=== PATIENT | male | born 1970 | race Caucasian/White ===

== ENCOUNTER 2019-10-05 07:57 | Outpatient (CLI) | payer OTHER, SELFPAY ==
--- NOTE | 2019-10-05 08:03 | MR_ITS ---
WS: [id number] MRI RIGHT KNEE NONCONTRAST TECHNIQUE: Axial PD, coronal PD fat sat, coronal PD, sagittal PD, and sagittal PD fat-sat images obta ined. CLINICAL INFORMATION: RIGHT KNEE PAIN COMPARISON: None. FINDINGS: Distal quadriceps and patella tendons are intact. Normal patella. Anterior and posterior cruciate lig aments are intact. Normal meniscus. No acute appearing meniscal tears. No evidence of high-grade inju ry. Grade 2 chondromalacia patella. No subchondral edema. Normal medial and lateral patellar retinaculum. Medial and lateral collateral ligaments are intact. Normal popliteal fossa. Mild joint space narrowi ng involving the medial and lateral joint compartments. Mild chondromalacia. No subchondral edema. No rmal tibial plateau. MR/MR knee RT wo con* [id number] IMPRESSION: 1. Anterior and posterior cruciate ligaments are intact. 2. Normal medial and lateral meniscus. No acute appearing meniscal tears. 3. Grade 2 chondromalacia patella. No subchondral edema. 4. Normal medial and lateral collateral ligaments. 5. Mild medial and lateral joint space narrowing with mild chondromalacia.
== END 2019-10-05 07:58 | disposition home or self-care (01) ==
LOC: RADSHAW 08:00
PROVIDERS: Family Provider Nurse Practitioner; PCP Nurse Practitioner; Visit Provider Nurse Practitioner
DX: M22.41 Chondromalacia patellae, right knee (principal)
CPT/HCPCS: 73721

== ENCOUNTER → 2021-05-23 15:33 | Outpatient (BNVA) | payer OTHER, SELFPAY | PROVIDERS: Family Provider Nurse Practitioner; PCP Nurse Practitioner; Visit Provider Nurse Practitioner Family | DX: Z20.822 Contact with and (suspected) exposure to COVID-19 (principal) | CPT/HCPCS: 87635 ==

== ENCOUNTER → 2022-01-05 10:41 | Outpatient (BNVA) | payer OTHER, SELFPAY | PROVIDERS: Family Provider Nurse Practitioner; PCP Nurse Practitioner; Referring Provider Nurse Practitioner; Visit Provider Surgery | DX: K61.0 Anal abscess (principal) | CPT/HCPCS: 99204 ==

== ENCOUNTER → 2025-07-16 09:53 | Outpatient (BNVA) | payer OTHER, SELFPAY | PROVIDERS: Family Provider Nurse Practitioner; PCP Nurse Practitioner; Visit Provider Surgery | DX: Z12.11 Encounter for screening for malignant neoplasm of colon (principal); R03.0 Elevated blood-pressure reading, without diagnosis of hypertension | CPT/HCPCS: 99204 ==

== ENCOUNTER 2025-07-26 06:49 | Day surgery (SDC) | payer OTHER, SELFPAY ==
[2025-07-26 07:05] VITALS: BP 144/84; PULSE 56; RESP 16; TEMP 36.3; O2SAT 98; BMI 25.0
--- NOTE | 2025-07-26 07:23 | ANES.PREANE2 ---
Pre-Anesthetic Assessment Height/Weight: Height 1.73 m Weight 74.843 kg Temp Pulse Resp BP Pulse Ox O2 Del Method 97.3 F L 56 L 16 144/84 98 Room Air 07/26/25 07:05 07/26/25 07:05 07/26/25 07:05 07/26/25 07:05 07/26/25 07:05 07/26/25 07:05 Preop Diagnosis: screen Operation Date: 07/26/25 08:20 Proposed Procedures p Colonoscopy 45924 [id number] Z12.11(Not Applicable) - Ze Leyva MD Familial anesthetic complications: none Was Beta Zonia taken within 24 hours: N/A Was Clonidine taken within 24 hours: N/A Last intake: Intake Last Liquid Date 07/25/25 Last Liquid Time 02:00 Last Solid Date 07/24/25 Last Solid Time 18:00 Social Alcohol (beer daily) and Tobacco (chew) Exam alert, oriented x 3, clear to auscultation bilaterally and regular rate & rhythm Airway Cervical ROM: within normal limits Mallampati: Class II Dentition: full Pulmonary None reported CV/HEM Hypertension (on losartan) None reported Hepatic None reported GI None reported Metabolic None reported Musc/skel Restless leg syndrome Neuropsych Depression Anesthetic Plan ASA status: 2 Anesthesia: MAC Risk of > 500 ml blood loss (7ml/kg in children): No Medications/Allergies Home Medications ?Medication ?Instructions ?Recorded ?Confirmed ?Last Taken ?Type citalopram 20 mg tablet 20 mg PO DAILY 05/23/21 07/26/25 07/25/25 History fluticasone propionate 50 1 spray intranasal DAILY 05/23/21 07/26/25 Unknown History mcg/actuation nasal spray,suspension (Flonase Allergy Relief) ropinirole 0.5 mg tablet 0.5 mg PO DAILY 01/05/22 07/26/25 07/24/25 History losartan 100 1 tab PO DAILY 07/16/25 07/26/25 07/25/25 History mg-hydrochlorothiazide 12.5 mg tablet Allergies Allergy/AdvReac Type Severity Reaction Status Date / Time Penicillins Allergy Severe edema Verified 07/23/25 10:27 Current Medications Generic Name Dose Route Start Last Admin Trade Name Freq PRN Reason Stop Dose Admin Sodium Chloride 1,000 mls @ 15 mls/hr 07/26/25 06:59 07/26/25 07:12 Sodium Chloride 0.9% IV 07/27/25 06:58 15 mls/hr .Q24H PRN Administration COLONOSCOPY FLUIDS PFSH Anesthesia Medical History (Updated 07/16/25 @ 09:58 by Ting Erazo, CT) COVID-19 Hyperlipidemia PTSD (post-traumatic stress disorder) GERD (gastroesophageal reflux disease) Surgical History History of colonoscopy last month Family History Other Cancer Social History Smoking and tobacco/nicotine status: never used tobacco/nicotine Alcohol intake: current Alcohol intake frequency: holidays/special occasions only
--- NOTE | 2025-07-26 08:28 | W.PM.OPSUD ---
Surgery/Procedure H&P Update DATE OF PROCEDURE: July 26, 2025 DATE H&P PERFORMED: 07/16/25 H&P UPDATE INFORMATION: I have reviewed H&P completed within last 30 days, I have examined patient prior to procedure, No changes to prior documentation, H&P is in [facility] EMR on date indicated and Risks and benefits of the procedure reviewed PREOP DIAGNOSIS: screen PLANNED PROCEDURE: Operation Date: 07/26/25 08:20 Proposed Procedures p Colonoscopy [id number] G0121 Z12.11(Not Applicable) - Ze Leyva MD
[2025-07-26 09:05] VITALS: BP 101/56; PULSE 56; RESP 18; TEMP 36.1; O2SAT 96
[2025-07-26 09:20] VITALS: BP 125/69; PULSE 58; RESP 16; O2SAT 98
--- NOTE | 2025-07-26 09:54 | ANE.PACU2 ---
Inpatient post-anesthesia follow up: Airway intact: Yes Vital signs: Temperature 97 F Pulse Rate 58 Respiratory Rate 16 Blood Pressure 125/69 Pulse Oximetry 98 Oxygen Delivery Me thod Room Air Oxygen Flow Rate Fraction of Inspir ed Oxygen Hydration adequate: Yes Nausea and vomiting: No Pain level: 1 Mental status: Baseline
== END 2025-07-26 09:55 | disposition home or self-care (01) ==
PROVIDERS: PCP Nurse Practitioner; Visit Provider Surgery
PROC: 0DJD8ZZ Inspection of Lower Intestinal Tract, Via Natural or Artificial Opening Endoscopic (ICD-10-PCS; CPT 45378; principal; 2025-07-26 08:20)
DX: Z12.11 Encounter for screening for malignant neoplasm of colon (principal); K57.30 Diverticulosis of large intestine without perforation or abscess without bleeding; K63.5 Polyp of colon; K62.1 Rectal polyp; E78.5 Hyperlipidemia, unspecified; K21.9 Gastro-esophageal reflux disease without esophagitis; F43.10 Post-traumatic stress disorder, unspecified; Z80.9 Family history of malignant neoplasm, unspecified; I10 Essential (primary) hypertension; F32.A Depression, unspecified
CPT/HCPCS: 45380; 88305; J2704; J3010; J7030

== ENCOUNTER → 2025-08-08 08:47 | Outpatient (BNVA) | payer OTHER, SELFPAY | PROVIDERS: PCP Nurse Practitioner; Visit Provider Surgery | DX: Z51.89 Encounter for other specified aftercare (principal); R03.0 Elevated blood-pressure reading, without diagnosis of hypertension | CPT/HCPCS: 99213 ==